=== PATIENT | male | born 1990 | race Caucasian/White ===

== ENCOUNTER → 2021-01-22 | Outpatient (CLI) | payer BC ==
[~2021-01-22] MED LIST: ALLERCLEAR10 MG PO; EPIPEN0.3 MG/0.3 IM; Prednisone50 MG PO
== END | disposition home or self-care (01) ==
LOC: LAB SHORT 11:40 → LAB 11:40 → PLD 11:40
DX: J06.9 Acute upper respiratory infection, unspecified (principal); Z20.822 Contact with and (suspected) exposure to COVID-19
CPT/HCPCS: U0003

== ENCOUNTER 2021-02-03 21:12 | Emergency (ER) | payer OTHER, BC ==
[~2021-02-03] VITALS: Ht 182.9 cm; Wt 108.9 kg
[2021-02-03] MEDS ORDERED: EPIPEN0.3 MG/0.3 IM (22:33)
[2021-02-03] MEDS ORDERED: Prednisone50 MG PO (22:33)
[2021-02-03] MEDS ORDERED: ALLERCLEAR10 MG PO (22:33)
== END 2021-02-03 23:01 | disposition home or self-care (01) ==
LOC: ER 21:12
DX: L50.9 Urticaria, unspecified (principal); F17.290 Nicotine dependence, other tobacco product, uncomplicated; Z91.048 Other nonmedicinal substance allergy status; Z91.09 Other allergy status, other than to drugs and biological substances
CPT/HCPCS: 96374; 96375; 99283-25; J1100; J1200